=== PATIENT | female | born 1955 | race African-American/Black ===

== ENCOUNTER → 2020-07-09 | Outpatient (CLI) | payer OTHER ==
--- NOTE | 2020-07-09 13:23 | RADIOLOGY REPORT (SQ) ---
EXAM DESCRIPTION: NM GASTRIC EMPTYING STUDY IMAGES COMPLETED DATE/TIME: 07/09/2020 1:10 pm REASON FOR STUDY: (R14.0)ABDOMINAL DISTENSION (GASEOUS);(R93.3)ABNORMAL FINDINGS ON DX IMAGIN R14.0 ABDOMINAL DISTENSION (GASEOUS) R93.3 ABNORMAL FINDINGS ON DX IMAGING OF PRT DIGESTIVE TRACT COMPARISON: None. RADIONUCLIDE AND DOSE: 2.14 millicuries Tc-99m Sulfur Colloid. Egg salad sandwich The route of agent administration: Oral. TECHNIQUE: 1 minute serial static imaging performed at time of meal, 1 hour, 2 hours, 3 hours, and 4 hours as needed. Once stomach reaches 90% emptying, the test is complete. Image intensity values pl otted with respect to time with linear regression algorithm. LIMITATIONS: None. FINDINGS: Patient was observed for 4 hours. Immediate post meal serves as baseline. Gastric emptying at 30 minutes was 36.7%. Gastric emptying at 60 minutes was 54.8% Gastric emptying at 90 minutes was 67.0%. Gastric emptying at 120 minutes was 75.7%. Gastric emptying at 240 minutes was 92.4% Normal values: 60 minutes: 30-90% retained. If less than 30%, abnormally rapid emptying. If greater than 90%, delaye d gastric emptying. 120 minutes: <60% retained. If greater than 60%, delayed gastric emptying. 240 minutes: <10% retained. If greater than 10%, delayed gastric emptying. IMPRESSION: NORMAL GASTRIC EMPTYING. TECHNICAL DOCUMENTATION: JOB ID: [id number] 2010 [employer]- All Rights Reserved Reading location - IP/workstation name: [email or web address]
== END ==
LOC: RAD 07:53
PROVIDERS: ATTEND Internal Medicine Gastroenterology
DX: R14.0 Abdominal distension (gaseous) (principal); R93.3 Abnormal findings on diagnostic imaging of other parts of digestive tract
CPT/HCPCS: 78264; A9541